=== PATIENT | female | born 1985 | race Caucasian/White ===

== ENCOUNTER → 2023-04-17 | Outpatient (CLI) | payer BC ==
[2023-04-17 17:38] LABS: HEMATOCRIT 37.5 % (36.0-47.0); HEMOGLOBIN 12.5 g/dl (12.0-15.5); MEAN CORPUSCULAR HEMOGLOBIN 29.2 pg (27.0-33.0); MEAN CORPUSCULAR HGB CONC 33.3 g/dl (32.0-36.5); MEAN CORPUSCULAR VOLUME 87.6 fl (80.0-96.0); PLATELET COUNT, AUTOMATED 215 10^3/uL (150-450); RED BLOOD COUNT 4.28 10^6/uL (4.00-5.40); WHITE BLOOD COUNT 8.6 10^3/uL (4.0-10.0)
[2023-04-17 18:13] LABS: HEMOGLOBIN A1c 5.5 % (4.0-6.0)
[2023-04-17 18:24] LABS: HIV 1&2 SCREEN NEGATIVE (NEGATIVE)
[2023-04-17 18:32] LABS: HEPATITIS C VIRUS ABY INDEX 0.03 INDEX (<0.8)
== END ==
LOC: M PLALAB 16:04
PROVIDERS: ATTEND Advanced Practice Midwife
DX: O09.529 Supervision of elderly multigravida, unspecified trimester (principal); Z34.81 Encounter for supervision of other normal pregnancy, first trimester

== ENCOUNTER → 2023-05-17 | Outpatient (CLI) | payer BC | LOC: M PLALAB 11:04 | PROVIDERS: ATTEND Advanced Practice Midwife | DX: O09.299 Supervision of pregnancy with other poor reproductive or obstetric history, unspecified trimester (principal) ==

== ENCOUNTER → 2023-06-14 | Outpatient (CLI) | payer BC | LOC: M WHC 10:01 | PROVIDERS: ATTEND Advanced Practice Midwife | DX: O09.299 Supervision of pregnancy with other poor reproductive or obstetric history, unspecified trimester (principal) ==

== ENCOUNTER → 2023-08-10 | Outpatient (CLI) | payer BC ==
[2023-08-10 14:53] LABS: HEMATOCRIT 36.7 % (36.0-47.0); MEAN CORPUSCULAR HGB CONC 32.7 g/dl (32.0-36.5); MEAN CORPUSCULAR VOLUME 88.6 fl (80.0-96.0); PLATELET COUNT, AUTOMATED 171 10^3/uL (150-450); RED BLOOD COUNT 4.14 10^6/uL (4.00-5.40); WHITE BLOOD COUNT 9.5 10^3/uL (4.0-10.0)
== END ==
LOC: M PLALAB 09:45
PROVIDERS: ATTEND Advanced Practice Midwife
DX: O34.211 Maternal care for low transverse scar from previous cesarean delivery (principal); Z3A.00 Weeks of gestation of pregnancy not specified

== ENCOUNTER → 2023-08-17 | Outpatient (CLI) | payer BC | LOC: M LAB 08:13 | PROVIDERS: ATTEND Advanced Practice Midwife | DX: R73.02 Impaired glucose tolerance (oral) (principal) ==

== ENCOUNTER → 2023-10-12 | Outpatient (CLI) | payer BC | LOC: M WHC 09:55 | PROVIDERS: ATTEND Advanced Practice Midwife | DX: O24.410 Gestational diabetes mellitus in pregnancy, diet controlled (principal) ==

== ENCOUNTER → 2023-10-12 | Outpatient (REF) | payer BC | LOC: M PLALAB 10:32 | PROVIDERS: ATTEND Advanced Practice Midwife | DX: O09.523 Supervision of elderly multigravida, third trimester (principal) ==

== ENCOUNTER 2023-10-31 08:18 | Inpatient (IN) | payer BC ==
[2023-10-31] VITALS (23 sets, daily range): BP systolic 104–148; BP diastolic 54–90; TEMP 97.8; O2SAT 96–98
[~2023-10-31] VITALS: Ht 162.6 cm; Wt 112.4 kg
[2023-10-31] MEDS ORDERED: METF500T13 (08:39)
[2023-10-31] MEDS ORDERED: HOME MED LIST COMPLETE! XX SCH (08:40)
[2023-10-31] MEDS ORDERED: PENICILLIN G POTASSIUM 5 MU IV 5 MU in D5W MINI-BAG PLUS 100 ML IV STA (09:02)
[2023-10-31] MEDS ORDERED: METHYLERGONOVINE MALEATE 0.2MG/ML 1ML VIAL IM PRN (09:05)
[2023-10-31] MEDS ORDERED: TRANEXAMIC ACID INJection 1,000 MG in NS 100 ML IV PRN (09:05)
[2023-10-31] MEDS ORDERED: OXYTOCIN DRIP 30 UNITS in IV 1 EA IV PRN (09:05)
[2023-10-31] MEDS ORDERED: CARBOPROST TROMETHAMINE 250 MCG/ML AMP IM PRN (09:05)
[2023-10-31] MEDS ORDERED: OXYTOCIN INJ 10UNITS/ML 1ML VIAL IM PRN (09:05)
[2023-10-31] MEDS ORDERED: LIDOCAINE 1% MDV 20ML VIAL INFIL PRN (09:05)
[2023-10-31 09:28] LABS: HEMATOCRIT 37.4 % (36.0-47.0); MEAN CORPUSCULAR HEMOGLOBIN 27.1 pg (27.0-33.0); MEAN CORPUSCULAR HGB CONC 32.1 g/dl (32.0-36.5); MEAN CORPUSCULAR VOLUME 84.4 fl (80.0-96.0); PLATELET COUNT, AUTOMATED 120 10^3/uL (150-450); RED BLOOD COUNT 4.43 10^6/uL (4.00-5.40); WHITE BLOOD COUNT 7.5 10^3/uL (4.0-10.0)
[2023-10-31] MEDS: LR 1,000 ML IV SCH ×4 (09:55→20:32)
[2023-10-31] MEDS: OXYTOCIN DRIP 30 UNITS in IV 1 EA IV SCH ×2 (09:56→19:45)
[2023-10-31 10:27] LABS: HEPATITIS C VIRUS ABY INDEX < 0.02 INDEX (<0.8)
[2023-10-31] MEDS ORDERED: PEN G POT 3,000,000 UNIT/50 ML 3,000,000 UNIT in IV 1 EA IV SCH (13:05)
[2023-10-31] MEDS: LACTATED RINGER'S 1000 ML IV STA (17:52)
[2023-10-31] MEDS: ceFAZolin SOD 2 GM in IV 1 EA IV ONE (17:56)
[2023-10-31] MEDS: BICITRA 30ML SOLN UDC PO ONE (17:56)
[2023-10-31] MEDS: AZITHROMYCIN INJ 500 MG, VIAL MATE ADAPTER 1 EACH in NS 250 ML IV ONE (17:56)
[2023-10-31] MEDS ORDERED: OXYTOCIN 30UNITS IN 0.9% NaCl 500ML IV BAG As Ordered ONE (18:59)
[2023-10-31] MEDS ORDERED: MORPHINE PRES-FREE INJ 10 MG/10 ML VIAL As Ordered ONE (18:59)
[2023-10-31] MEDS ORDERED: fentaNYL 100 MCG/2 ML INJECTION As Ordered ONE (18:59)
[2023-10-31] MEDS ORDERED: PHENYLephrine 500MCG 5ML (100MCG/ML) SYRINGE As Ordered ONE (19:04)
[2023-10-31] MEDS ORDERED: KETOROLAC 60MG 2ML VIAL As Ordered ONE (19:14)
[2023-10-31] MEDS ORDERED: ONDANSETRON 4MG 2ML VIAL As Ordered ONE (19:21)
[2023-10-31 19:26] LABS: CORD GAS ABE A -3.8; CORD GAS HCO3 A 21.8 MMOL/L; CORD GAS O2 SAT A 52.3 %; CORD GAS PCO2 A 41.4 mmHg; CORD GAS PH A 7.339 UNITS; CORD GAS PO2 A 21.3 mmHg; CORD GAS SBC A 20.2 MMOL/L; CORD GAS TCO2 A 23.1 MMOL/L
[2023-10-31 19:28] LABS: CORD GAS ABE V -0.7; CORD GAS HCO3 V 23.3 MMOL/L; CORD GAS O2 SAT V 74.1 %; CORD GAS PCO2 V 37.2 mmHg; CORD GAS PH V 7.415 UNITS; CORD GAS PO2 V 28.6 mmHg; CORD GAS SBC V 23.2 MMOL/L; CORD GAS TCO2 V 24.5 MMOL/L
[2023-10-31] MEDS ORDERED: ACETAMINOPHEN 1000MG 100ML IV BAG As Ordered ONE (19:28)
[2023-10-31] MEDS ORDERED: **NOTE PATIENT COMMENT** MISC XX SCH (19:45)
[2023-10-31] MEDS: SLF 3 ML SYR IV SCH (19:45)
[2023-10-31] MEDS ORDERED: ONDANSETRON 4MG TAB PO PRN (19:45)
[2023-10-31] MEDS ORDERED: METOCLOPRAMIDE INJ 10MG/2ML VIAL IV PRN (19:45)
[2023-10-31] MEDS ORDERED: fentaNYL 100 MCG/2 ML INJECTION IV PRN (19:45)
[2023-10-31] MEDS ORDERED: oxyCODONE 5MG TAB PO PRN (19:45)
[2023-10-31] MEDS ORDERED: NALOXONE INJ 0.4MG/1ML VIAL IV PRN ×2 (19:45)
[2023-10-31] MEDS ORDERED: DOCUSATE SODIUM 100MG CAPSULE PO PRN (19:45)
[2023-10-31] MEDS ORDERED: RHO(D) IMMUNE GLOBULIN/MALTOSE 500MCG(2500IU)/2.2ML VIAL (WINRHO) IM SCH (19:45)
[2023-10-31] MEDS ORDERED: ONDANSETRON 4MG 2ML VIAL IV PRN (19:45)
[2023-10-31] MEDS ORDERED: IBUP80TA PO (20:32)
[2023-10-31] MEDS ORDERED: OXYC1TAB23 PO (20:32)
[2023-10-31] MEDS ORDERED: DOCU100C16 PO (20:34)
[2023-10-31] MEDS: diphenhydrAMINE 50MG/ML VIAL IV PRN (23:11)
[2023-11-01] VITALS (7 sets, daily range): BP systolic 94–136; BP diastolic 52–74; O2SAT 97–100
[2023-11-01] MEDS: KETOROLAC 30 MG/ML 1ML VIAL IV SCH (01:00)
[2023-11-01] MEDS: NALBUPHINE HCL 1MG/0.1ML (100MG/10ML) MDV IV PRN (01:40)
[2023-11-01 06:48] LABS: HEMATOCRIT 30.9 % (36.0-47.0); MEAN CORPUSCULAR HEMOGLOBIN 27.5 pg (27.0-33.0); MEAN CORPUSCULAR HGB CONC 32.4 g/dl (32.0-36.5); MEAN CORPUSCULAR VOLUME 85.1 fl (80.0-96.0); PLATELET COUNT, AUTOMATED 111 10^3/uL (150-450); RED BLOOD COUNT 3.63 10^6/uL (4.00-5.40)
[2023-11-01] MEDS: PERCOCET 5MG/325MG TAB PO PRN ×2 (08:21→21:30)
[2023-11-01] MEDS: PRENATAL VITAMINS CHEWABLE TABLET PO SCH (08:21)
[2023-11-01] MEDS: SIMETHICONE 80MG CHEW TAB PO PRN (18:10)
[2023-11-01] MEDS: IBUPROFEN 800 MG TAB PO SCH (20:14)
[2023-11-02 02:00] VITALS: BP 103/54; O2SAT 98
[2023-11-02 06:00] VITALS: BP 126/60; O2SAT 99
[2023-11-02] MEDS: MEASLES,MUMPS,RUBELLA VACCINE INJ (MMR-II) SC.IMMUN ONE (09:00)
[2023-11-02 10:14] VITALS: BP 133/66; O2SAT 100
== END 2023-11-02 15:00 | disposition home or self-care (01) | DRG 540 ==
LOC: M LDI 08:18 → M OBS 21:22
PROVIDERS: ADMIT Advanced Practice Midwife; ATTEND Specialist
PROC: 3E033VJ Introduction of Other Hormone into Peripheral Vein, Percutaneous Approach (ICD-10-PCS; 2023-10-31)
PROC: 10D00Z1 Extraction of Products of Conception, Low, Open Approach (ICD-10-PCS; principal; 2023-10-31 18:30)
DX: O24.425 Gestational diabetes mellitus in childbirth, controlled by oral hypoglycemic drugs (principal); O34.211 Maternal care for low transverse scar from previous cesarean delivery; O99.824 Streptococcus B carrier state complicating childbirth; Z79.84 Long term (current) use of oral hypoglycemic drugs; O69.81X0 Labor and delivery complicated by cord around neck, without compression, not applicable or unspecified; Z37.0 Single live birth; O61.0 Failed medical induction of labor; O66.41 Failed attempted vaginal birth after previous cesarean delivery; Z3A.39 39 weeks gestation of pregnancy

== ENCOUNTER → 2024-01-23 | Outpatient (REF) | payer BC ==
[~2024-01-23] MED LIST: DOCU100C16 PO; IBUP80TA PO; METF500T13; OXYC1TAB23 PO
== END ==
LOC: M SFHCPLAZ 13:03
PROVIDERS: ATTEND Family Medicine
DX: Z86.32 Personal history of gestational diabetes (principal); Z53.9 Procedure and treatment not carried out, unspecified reason

== ENCOUNTER → 2024-05-07 | Outpatient (CLI) | payer BC ==
[2024-05-07 12:34] LABS: HEMATOCRIT 43.1 % (36.0-47.0); HEMOGLOBIN 13.9 g/dl (12.0-15.5); MEAN CORPUSCULAR HEMOGLOBIN 27.6 pg (27.0-33.0); MEAN CORPUSCULAR HGB CONC 32.3 g/dl (32.0-36.5); MEAN CORPUSCULAR VOLUME 85.7 fl (80.0-96.0); PLATELET COUNT, AUTOMATED 308 10^3/uL (150-450); RED BLOOD COUNT 5.03 10^6/uL (4.00-5.40); WHITE BLOOD COUNT 6.2 10^3/uL (4.0-10.0)
[2024-05-07 12:59] LABS: ALBUMIN 3.7 G/DL (3.2-5.2); ALKALINE PHOSPHATASE 155 U/L (35-104); ALT/SGPT 28 U/L (7.0-40); AST/SGOT 17 U/L (<34); BILIRUBIN,TOTAL 0.3 MG/DL (0.3-1.2); BLOOD UREA NITROGEN 12 MG/DL (9-23); CALCIUM LEVEL 8.8 MG/DL (8.5-10.1); CARBON DIOXIDE LEVEL 28 MMOL/L (20-31); CHLORIDE LEVEL 107 MMOL/L (98-107); CHOLESTEROL LEVEL 206 MG/DL (<200); CHOLESTEROL RISK RATIO 3.89 (<5); CREATININE FOR GFR 0.68 MG/DL (0.55-1.30); GLOMERULAR FILTRATION RATE > 60.0 (>60); GLUCOSE, FASTING 87 MG/DL (60-100); GLUCOSE,RANDOM 87 MG/DL (LESS THAN 200); HDL CHOLESTEROL 52.9 MG/DL (>40); LDL CHOLESTEROL 122.1 MG/DL (<100); NON-HDL-C 153.1 MG/DL; POTASSIUM SERUM 4.7 MMOL/L (3.5-5.1); SODIUM LEVEL 142 MMOL/L (136-145); TOTAL PROTEIN 7.1 G/DL (5.7-8.2); TRIGLYCERIDES LEVEL 155 MG/DL (<150)
[2024-05-07 13:26] LABS: HEMOGLOBIN A1c 5.9 % (4.0-6.0)
== END ==
LOC: M PLALAB 10:12
DX: Z86.32 Personal history of gestational diabetes (principal)